=== PATIENT | male | born 1985 | race Caucasian/White ===

== ENCOUNTER 2017-03-14 18:47 | Emergency (ER) | payer SELFPAY ==
[~2017-03-14] VITALS: Ht 172.7 cm; Wt 82.4 kg
[2017-03-14 19:36] LABS: HEMATOCRIT 48.2 % (38.0-50.0); MCH 30.9 PG (29.0-34.0); MCHC 34.2 G/DL (30.0-36.0); MCV 90.3 FL (86-99); RBC DIS.WIDTH-CV 11.8 % (11.8-14.6); RBC DIS.WIDTH-SD 39.3 % (39-53); RED BLOOD COUNT 5.34 M/uL (4.00-5.50); WHITE BLOOD COUNT 10.3 K/uL (4.1-10.2)
[2017-03-14 19:45] LABS: CHLORIDE 106 mEq/L (99-109); SODIUM 140 mEq/L (136-147)
[2017-03-14 19:47] LABS: GLUCOSE 101 mg/dL (70-99)
[2017-03-14 19:48] LABS: ANION GAP 11 MEQ/L (2-14)
[2017-03-14 19:51] LABS: UREA NITROGEN (BUN) 10 mg/dL (9-23)
[2017-03-14 19:52] LABS: GFR ESTIMATE (CALCULATED) > 59 mL/min/
[2017-03-14 19:56] LABS: TROP-I INTERPRETATION NEGATIVE; TROPONIN-I < 0.01 ng/mL (0.0-0.30)
[2017-03-14 20:34] LABS: PLAT.SUFFICIENCY DECREASED; PLATELET COUNT 118 K/uL (156-360)
[2017-03-14] MEDS ORDERED: VENTOLIN HFA18 GM IH (22:17)
[2017-03-14 22:45] VITALS: BP 125/86
== END 2017-03-14 22:48 | disposition home or self-care (01) ==
LOC: EME 18:47 → RME 18:47
DX: J45.909 Unspecified asthma, uncomplicated (principal); R07.9 Chest pain, unspecified; F17.200 Nicotine dependence, unspecified, uncomplicated
CPT/HCPCS: 71020; 80048; 84484; 85027; 93005; 94640; 94664; 99281; 99285; J1100